=== PATIENT | male | born 1950 | race Caucasian/White ===

== ENCOUNTER 2020-08-08 11:28 | Emergency (ER) | payer MEDICARE, OTHER, SELFPAY ==
[2020-08-08 11:41] VITALS: BP 167/97; PULSE 92; RESP 20; TEMP 37; O2SAT 98
--- NOTE | 2020-08-08 11:56 | ED.LOWEXIN ---
HPI - Extremity Injury (Lower) General Chief Complaint: Extremity Problem,Nontraumatic Stated Complaint: right knee pain Time Seen by Provider: 08/08/20 11:48 Source: patient and RN notes reviewed Mode of arrival: ambulatory Limitations: no limitations History of Present Illness HPI Narrative: Patient presents today complaining of right knee pain x2 days that has been worse since 3:00 this morning. Denies trauma. 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 States he has been washing the knee with peroxide and applying triple antibiotic ointment, but is unsure if this is helping. States the knee is swelling as well. Pain increases when he goes from a sitting to standing position. States this is not the first time the swelling and pain has occurred. Denies any known injury or trauma. Related Data Allergies Allergy/AdvReac Type Severity Reaction Status Date / Time erythromycin base Allergy Intermediate RASH, Verified 05/26/16 13:33 JOINT PAIN ethyl alcohol Allergy Intermediate RASH, Verified 05/26/16 13:33 JOINT PAIN atorvastatin Allergy Unknown Verified 05/06/10 15:38 lisinopril Allergy Unknown Confusion Verified 07/24/18 14:29 Nyaksyw-Rvv-Quc Reductase Allergy Unknown Verified 05/09/16 10:23 Inhibitor statins Allergy Intermediate hives Uncoded 11/24/17 12:19 Review of Systems Review of Systems: Narrative: CONSTITUTIONAL: Denies body aches, fever, chills, or sweats. EYES: Denies visual changes, redness, or discharge. ENT: Denies rhinorrhea, congestion, sore throat, or otalgia. CARDIOVASCULAR: Denies chest pain, palpitations, or edema. RESPIRATORY: Denies cough or dyspnea. GASTROINTESTINAL: Denies abdominal pain, nausea, vomiting, or diarrhea. GENITOURINARY: Denies dysuria or hematuria. SKIN: Denies rash, itching, or wounds. MUSCULOSKELETAL: Denies back pain, or myalgia.+ Right knee pain and swelling NEUROLOGIC: Denies headache, numbness, tingling, or weakness. PSYCH: Denies depression or anxiety. [facility] Past Medical History Medical History (Updated 08/08/20 @ 12:08 by Shonna Ruiz, JOB TRACER, ) Alcohol dependence Colon polyps Diverticulosis GERD (gastroesophageal reflux disease) Hypercholesterolemia Hypertension Family History Family History (Updated 09/23/16 @ 23:56 by DOCTOR UNKNOWN) Mother Family history of migraine headaches Family history of lymphoma, Onset Age: 68 Patient's mother is Family history of Hodgkin's lymphoma Father Patient's father is in good health Hypertension Family history of cardiovascular disease Sibling Patient's sister is in good health Patient's brother is in good health Social History Social History Smoking status: Former smoker Smoking end date: 06/19/89 Alcohol intake: current Comments At time of signature, I have reviewed and agree with nursing past medical, surgical, social and family history unless otherwise noted. Please see nursing chart for further information. There is no relevant family history pertinent to the presenting complaint Exam Narrative: Exam Narrative: GENERAL: Well-appearing, well-nourished, and in no acute distress. HEAD: Normocephalic, atraumatic. EYES: EOMI. No redness or drainage. Conjunctivae normal. ENT: Mucous membranes pink and moist. NECK: Normal AROM. CHEST: No respiratory distress. EXTREMITIES: Right knee: Tenderness and swelling to the prepatellar bursa. No erythema, induration, or increased warmth noted. Full range of motion of the knee. No knee effusion noted. No swelling about the knee joint, other than the prepatellar bursa. Distal sensation intact. Capillary refill normal. Pedal pulse normal. SKIN: Warm, dry, no rash. Capillary refill normal. Normal skin turgor. NEURO: No focal deficits. Alert and oriented x3. Gait steady. PSYCH: Normal affect. No signs of depression or anxiety. Course Vital Signs Vital signs: Vital Signs Temperature 98.6 F 02
== END 2020-08-08 12:03 | disposition home or self-care (01) ==
PROVIDERS: Emergency Provider Nurse Practitioner; PCP Family Medicine
DX: M70.41 Prepatellar bursitis, right knee (principal); Z87.891 Personal history of nicotine dependence; K21.9 Gastro-esophageal reflux disease without esophagitis; E78.00 Pure hypercholesterolemia, unspecified; I10 Essential (primary) hypertension
CPT/HCPCS: 99203; G0463

== ENCOUNTER 2021-02-27 11:44 | Emergency (ER) | payer MEDICARE, OTHER, SELFPAY ==
[2021-02-27] VITALS (22 sets, daily range): BP systolic 141–178; BP diastolic 79–103; PULSE 67–89; RESP 11–20; TEMP 36.4; O2SAT 95–100
--- NOTE | ~2021-02-27 | CT_ITS ---
EXAMINATION: CT BRAIN W/O DATE: 02/27/2021 16:09 INDICATION: Dizziness TECHNIQUE: Computed tomography (CT) of the head was performed without intravenous contrast. The dose- length product was 605.33 mGy-cm. Automated exposure control and iterative reconstruction technique w ere employed. COMPARISON: No prior studies for comparison. FINDINGS: Normal brain parenchymal volume for age. Normal pinto-white differentiation. No acute intrac ranial hemorrhage, infarction, mass or mass effect. No ventriculomegaly or midline shift. Midline sagittal images demonstrate a normal corpus callosum, c raniovertebral junction and sella turcica. Basilar cisterns are patent. Paranasal sinuses and mastoids are pneumatized. No depressed skull fractures. IMPRESSION: 1. No acute intracranial abnormality. Reviewed, dictated and finalized at location A.
--- NOTE | ~2021-02-27 | XR_ITS ---
EXAMINATION: XR chest 2V EXAM DATE: 02/27/2021 12:26 INDICATION: Dizziness HTN, anxiety. TECHNIQUE: Frontal and lateral projections of the chest obtained and reviewed. Comparison is made to prior examination from 02/27/2021. FINDINGS: The lungs are clear. There are no pleural effusions. The cardiomediastinal silhouette is within normal limits. There is no pneumothorax suspected. Patient has diffuse idiopathic skeletal h yperostosis (DISH). IMPRESSION: No acute cardiopulmonary findings. Reviewed, dictated and finalized at location A.
--- NOTE | 2021-02-27 12:17 | ECG_ITS ---
Measurements Intervals [place] Rate: 79 P: 41 DE: 155 QRS: -31 QRSD: 97 T: 27 QT: 375 QTc: 432 Interpretive Statements SINUS RHYTHM INCOMPLETE RIGHT BUNDLE BRANCH BLOCK BORDERLINE R WAVE PROGRESSION, ANTERIOR LEADS INFERIOR INFARCT, AGE INDETERMINATE BASELINE ARTIFACT- I, II, III, AVL ABNORMAL ECG Electronically Signed On 02-27-2021 15:44:04 CDT by Carrillo Gusman D.O.
[2021-02-27 12:41] LABS: Basophils Absolute Auto 0.1 K/mm3 (0.0-0.1); Basophils Percent Auto 1.2 % (0.2-1.2); Eosinophils Absolute Auto 0.1 K/mm3 (0-0.3); Hematocrit 42.2 % (42.0-52.0); Hemoglobin 14.1 g/dL (14.0-18.0); Immature Granulocyte Absolute 0.03 K/mm3 (0.00-0.031); Immature Granulocyte Percent A 0.4 % (0-0.5); Lymphocytes Absolute Auto 1.33 K/mm3 (0.9-3.2); Lymphocytes Percent Auto 19.4 % (18.3-44.2); Mean Corpuscular HGB Conc 33.4 g/dl (32-36); Mean Corpuscular Hemoglobin 31.6 pg (26-34); Mean Corpuscular Volume 94.6 fl (80-100); Mean Platelet Volume 8.8 fl (7.4-10.4); Monocytes Absolute Auto 0.6 K/mm3 (0.1-0.6); Monocytes Percent Auto 8.6 % (2.6-8.5); Neutrophils Absolute Auto 4.7 K/mm3 (1.3-6.7); Neutrophils Percent Auto 68.4 % (45.5-73.1); Platelet Count Result 270 k/mm3 (150-375); Red Blood Count 4.46 M/mm3 (4.6-6.20); Red Cell Distribution Width 12.7 % (11.5-14.5); White Blood Count 6.9 K/mm3 (4.5-10.0)
[2021-02-27 12:51] LABS: INR 0.8; Prothrombin Time 11.5 Seconds (11.1-14.7)
[2021-02-27 12:52] LABS: Partial Thromboplastin Time 25.7 SECONDS (22.3-36.8)
[2021-02-27 12:53] LABS: Anion Gap 11 mmol/L (8-16); Blood Urea Nitrogen 12 mg/dL (9-20); Calcium 9.6 mg/dL (8.4-10.2); Carbon Dioxide 23 mmol/L (22-30); Chloride 103 mmol/L (98-107); Estimated CRCL calculation 68 ml/min; Estimated Glomerular Filt Rate > 60; Glucose 114 mg/dL (65-110); Potassium 4.1 mmol/L (3.4-5.0); Sodium 137 mmol/L (137-145)
[2021-02-27 13:04] LABS: Troponin I < 0.012 ng/mL (0.000-0.034)
[2021-02-27 15:31] LABS: Troponin I < 0.012 ng/mL (0.000-0.034)
[2021-02-27 16:42] LABS: Ethanol < 10 mg/dL (<10)
[2021-02-27 16:43] LABS: Alanine Aminotransferase 37 U/L (4-50); Albumin Level 4.7 g/dL (3.5-5.1); Alkaline Phosphatase 66 U/L (38-126); Aspartate Amino Transferase 47 U/L (17-59); Bilirubin,Total 0.8 mg/dL (0.2-1.3)
--- NOTE | 2021-02-27 16:43 | ED.GENADULT ---
HPI - General Adult General Chief complaint: Headache Stated complaint: dizzy/htn Time Seen by Provider: 02/27/21 15:59 Source: patient Mode of arrival: ambulatory Limitations: no limitations History of Present Illness HPI narrative: Patient 71 years old white male presents with some dizziness started early this morning, subsequently patient started measuring his blood pressure every half an hour,, with blood pressure going higher in the higher each time. Patient got anxious restless. Patient denies any fever, chills, nausea, vomiting, chest pain, shortness of breath, headache. Patient used to be on blood pressure medication 2 years ago, doesn't use it anymore because his blood pressure normally runs around 110-120/70. Over the last few months.. On arrival to the emergency room blood pressure is 178/100, at the time of discharge 147/79. Patient declined any prescription of blood pressure at this time because yesterday was about 110/70. Patient is not vaccinated for COVID-19. Related Data Home Medications Medication Instructions Recorded Confirmed No Home Medications 02/27/21 02/27/21 Allergies Allergy/AdvReac Type Severity Reaction Status Date / Time erythromycin base Allergy Intermediate RASH, Verified 02/27/21 12:16 JOINT PAIN ethyl alcohol Allergy Intermediate RASH, Verified 02/27/21 12:16 JOINT PAIN atorvastatin Allergy Unknown Unknown Verified 02/27/21 12:16 lisinopril Allergy Unknown Confusion Verified 02/27/21 12:16 Vandfys-Mrx-Xll Reductase Allergy Unknown Unknown Verified 02/27/21 12:16 Inhibitor statins Allergy Intermediate hives Uncoded 02/27/21 12:16 Review of Systems Review of Systems: CONSTITUTIONAL: Denies fever, chills, or sweats. EYES: Denies visual changes, redness, or discharge. ENT: Denies rhinorrhea, congestion, sore throat, or otalgia. CARDIOVASCULAR: Denies chest pain, palpitations, or edema. RESPIRATORY: Denies cough or dyspnea. GASTROINTESTINAL: Denies abdominal pain, nausea, vomiting, or diarrhea. GENITOURINARY: Denies dysuria or hematuria. SKIN: Denies rash or itching. MUSCULOSKELETAL: Denies back pain, joint pain, or myalgia. NEUROLOGIC: Denies headache, numbness, or weakness. PSYCHIATRIC: Denies anxiety or depression. [facility] Past Medical History Medical History Alcohol dependence Colon polyps Diverticulosis GERD (gastroesophageal reflux disease) Hypercholesterolemia Hypertension Family History Family History Mother Family history of migraine headaches Family history of lymphoma, Onset Age: 68 Patient's mother is Family history of Hodgkin's lymphoma Father Patient's father is in good health Hypertension Family history of cardiovascular disease Sibling Patient's sister is in good health Patient's brother is in good health Social History Social History Smoking status: Former smoker Smoking end date: 06/19/89 Alcohol intake: current Exam Narrative: General appearance: Well-developed, well-nourished Skin: Normal color Head: Normocephalic, nontraumatic Eyes: Clear conjunctiva ENT: Oropharynx normal, ears normal, nose normal Neck: Supple, nontender Chest and respiratory: Airway patent, no respiratory distress, no accessory muscle use Heart: Regular rate/rhythm Abdomen: Soft, nontender, no organomegaly, quiet bowel sounds Vascular: Normal peripheral pulses, normal capillary refill. Musculoskeletal: Normal range of motion, nontender back Neurologic: Alert and oriented ?3, [employer] is normal as tested, no gross motor deficit
[2021-02-27 16:53] LABS: Amphetamine Screen Urine Negative (Negative); Barbiturate Screen Urine Negative (Negative); Benzodiazepines Screen Urine Negative (Negative); Cannabinoid Screen Urine Negative (Negative); Cocaine Screen Urine Negative (Negative); Methadone Screen Urine Negative (Negative); Opiate Screen Urine Negative (Negative); Phencyclidine Screen Urine Negative (Negative)
== END 2021-02-27 17:47 | disposition home or self-care (01) ==
PROVIDERS: Emergency Provider Emergency Medicine; PCP Family Medicine
DX: R42 Dizziness and giddiness (principal); F41.9 Anxiety disorder, unspecified; E78.00 Pure hypercholesterolemia, unspecified; I10 Essential (primary) hypertension; K21.9 Gastro-esophageal reflux disease without esophagitis; Z86.010 Personal history of colon polyps; Z87.891 Personal history of nicotine dependence; I45.10 Unspecified right bundle-branch block; R94.31 Abnormal electrocardiogram [ECG] [EKG]
CPT/HCPCS: 36415; 70450; 71046; 80048; 80076; 80307; 84443; 84484; 85025; 85610; 85730; 93005; 99284

== ENCOUNTER 2022-08-10 01:44 | Day surgery (SDC) | payer MEDICARE, OTHER, SELFPAY ==
[2022-07-25 14:31] VITALS: BMI 27.0
--- NOTE | 2022-08-09 19:13 | PM.HPGS ---
History of Present Illness History of Present Illness Consent: Risks, benefits, and alternatives have been discussed and questions answered. Patient agrees to proceed with procedure. Chief complaint: hx colon polyps Narrative: Henri Feng is a 72 year old male referred for colon cancer screening. He has a history of polyps. Review of Systems Review of Systems: All systems reviewed & are unremarkable except as noted in HPI and below PMFSH Past Medical History Medical History Alcohol dependence Alcoholism Cataract of left eye Colon polyps Diverticulosis Essential (primary) hypertension Fatty liver, alcoholic GERD (gastroesophageal reflux disease) Hypercholesterolemia Hyperlipidemia, acquired Hypertension Personal history of colonic polyps Screening for colon cancer Surgical History Surgical History H/O colonoscopy Hx of appendectomy Family History Family History Mother Family history of migraine headaches Family history of lymphoma, Onset Age: 68 Patient's mother is Family history of Hodgkin's lymphoma Father Patient's father is in good health Hypertension Family history of cardiovascular disease Sibling Patient's sister is in good health Patient's brother is in good health Social History Social History Years smoked: 25 Smoking status: Former smoker Tobacco type: cigarettes Smoking end date: 06/19/89 Alcohol intake: current Substance use: never Living arrangements: with family Occupation/Education: retired Additional occupation/education comments: retired Agree to blood products: Yes Meds Home Medications and Allergies Home Medications Medication Instructions Recorded Confirmed Type B-complex with vitamin C 1 tablet PO DAILY 03/31/22 08/10/22 History Allergies Allergy/AdvReac Type Severity Reaction Status Date / Time erythromycin base Allergy Intermediate RASH, Verified 08/10/22 07:00 JOINT PAIN ethyl alcohol Allergy Intermediate RASH, Verified 08/10/22 07:00 JOINT PAIN atorvastatin Allergy Unknown Unknown Verified 08/10/22 07:00 lisinopril Allergy Unknown Confusion Verified 08/10/22 07:00 Tbmksle-GCC-GlG Reductase Allergy Unknown Unknown Verified 08/10/22 07:00 Inhibitor [Uvezwjq-Pmc-Daa Reductase Inhibitor] statins Allergy Intermediate hives Uncoded 08/10/22 07:00 Exam Resp: Auscultation: clear to auscultation bilaterally Cardio: Rate: regular rate Rhythm: regular rhythm GI: GI Palp: Yes Soft to palpation and No Tenderness to palpation present (GI) Assessment and Plan Assessment and plan (1) Screening for colon cancer: Code(s): Z12.11 - Encounter for screening for malignant neoplasm of colon Status: Acute Assessment and Plan: Colonoscopy with possible biopsy or polypectomy or cautery or injection of substances.
[2022-08-10 07:01] VITALS: BP 165/77; PULSE 81; RESP 16; TEMP 36.1; O2SAT 99; BMI 27.1
[2022-08-10] MEDS: LACTATED RINGERS 1,000 ML 150 ML IV CONT (07:10)
--- NOTE | 2022-08-10 07:41 | WPDANESEPPF ---
Anes - Initial Pre Proc Eval Procedure: Operation Date: 08/10/22 08:30 Proposed Procedures p Screening Colonoscopy - Chuck Hennessy MD Date/Time: 08/10/22 07:41 Surgeon: Chuck Hennessy MD Pre Op Diagnosis: hx colon polyps Patient Data Age: 72 Gender: M Height: 1.68 m Weight: 76.3 kg Last Vital Signs Temp 96.9 F L 08/10/22 07:01 Pulse 81 08/10/22 07:01 Resp 16 08/10/22 07:01 BP 165/77 H 08/10/22 07:01 Pulse Ox 99 08/10/22 07:01 O2 Del Method Room Air 08/10/22 07:01 Allergies Allergy/AdvReac Type Severity Reaction Status Date / Time erythromycin base Allergy Intermediate RASH, Verified 08/10/22 07:00 JOINT PAIN ethyl alcohol Allergy Intermediate RASH, Verified 08/10/22 07:00 JOINT PAIN atorvastatin Allergy Unknown Unknown Verified 08/10/22 07:00 lisinopril Allergy Unknown Confusion Verified 08/10/22 07:00 Pwrgnhy-OVJ-SuP Reductase Allergy Unknown Unknown Verified 08/10/22 07:00 Inhibitor [Sicxjoi-Xqi-Zep Reductase Inhibitor] statins Allergy Intermediate hives Uncoded 08/10/22 07:00 Home Medications Medication Instructions Recorded Confirmed Type B-complex with vitamin C 1 tablet PO DAILY 03/31/22 08/10/22 History Patient hx anesthesia problems: none Family hx anesthesia problems: none Results Review: All pre-operative results and documents have been reviewed as part of the pre-operative evaluation. [facility] Past Medical History Medical History Alcohol dependence Alcoholism Cataract of left eye Colon polyps Diverticulosis Essential (primary) hypertension Fatty liver, alcoholic GERD (gastroesophageal reflux disease) Hypercholesterolemia Hyperlipidemia, acquired Hypertension Personal history of colonic polyps Screening for colon cancer Surgical History Surgical History H/O colonoscopy Hx of appendectomy Family History Family History Mother Family history of migraine headaches Family history of lymphoma, Onset Age: 68 Patient's mother is Family history of Hodgkin's lymphoma Father Patient's father is in good health Hypertension Family history of cardiovascular disease Sibling Patient's sister is in good health Patient's brother is in good health Social History Social History Years smoked: 25 Smoking status: Former smoker Tobacco type: cigarettes Smoking end date: 06/19/89 Alcohol intake: current Substance use: never Living arrangements: with family Occupation/Education: retired Additional occupation/education comments: retired Agree to blood products: Yes Anes - Eval Final PreProcedure Day of Procedure 08/10/22 07:41 Patient weight: normal Heart: regular rate and rhythm Lungs: clear to auscultation Airway: Mallampati scale class II Neurological: alert and oriented Last oral intake: >/= 8 hours ASA classification: II Emergent: no Anesthetic plan: proceed Anesthesia type and monitoring: general GIVS and standard monitoring Results Review: All pre-operative results and documents have been reviewed as part of the pre-operative evaluation. Informed Consent: The patient's anesthetic plan and its attendant risks and benefits were discussed with the patient/family/POA. Questions were solicited and answers provided to the satisfaction of the patient/family/POA.
[2022-08-10 08:24] VITALS: BP 127/74; PULSE 80; RESP 19; O2SAT 98
[2022-08-10 08:34] VITALS: BP 141/90; PULSE 73; RESP 23; O2SAT 98
[2022-08-10 08:44] VITALS: BP 139/81; PULSE 66; RESP 18; O2SAT 97
== END 2022-08-10 08:51 | disposition home or self-care (01) ==
PROVIDERS: PCP Family Medicine; Visit Provider Internal Medicine Gastroenterology
PROC: 0DJD8ZZ Inspection of Lower Intestinal Tract, Via Natural or Artificial Opening Endoscopic (ICD-10-PCS; CPT 45378; principal; 2022-08-10 08:30)
DX: Z12.11 Encounter for screening for malignant neoplasm of colon (principal); K64.8 Other hemorrhoids; K57.30 Diverticulosis of large intestine without perforation or abscess without bleeding; Z86.010 Personal history of colon polyps; I10 Essential (primary) hypertension; E78.00 Pure hypercholesterolemia, unspecified; K21.9 Gastro-esophageal reflux disease without esophagitis; K76.0 Fatty (change of) liver, not elsewhere classified; Z87.891 Personal history of nicotine dependence
CPT/HCPCS: G0105; J2704; J7120